=== PATIENT | male | born 1975 | race Caucasian/White ===

== ENCOUNTER 2017-08-07 08:55 | Emergency (ER) | payer OTHER ==
[~2017-08-07] VITALS: Ht 182.9 cm; Wt 106.6 kg
[2017-08-07 09:00] VITALS: BP 132/93
== END 2017-08-07 14:20 | disposition left against medical advice (07) ==
LOC: ER 08:55
DX: R00.2 Palpitations (principal); Z53.21 Procedure and treatment not carried out due to patient leaving prior to being seen by health care provider
CPT/HCPCS: 93005